=== PATIENT | male | born 1935 | race Caucasian/White ===

== ENCOUNTER 2016-07-20 12:40 | Day surgery (SDC) | payer MEDICARE ==
[~2016-07-20] VITALS: Ht 181.6 cm; Wt 97.0 kg
[~2016-07-20 12:40] MED LIST: ASPI-973 PO; FUR20 PO; Sodium Chloride LOK Flush 10 mL Syringe IV PRN; fentaNYL-PF 50 mCg/mL 2 mL Inj IVPUSH PRN
[2016-07-20 13:17] VITALS: BP 132/75; PULSE 82; RESP 15; O2SAT 96
[2016-07-20] MEDS: 0.9% Sodium Chloride 1,000 ML IV PRN ×2 (13:59→14:12)
[2016-07-20 14:28] VITALS: BP 141/76; PULSE 77; RESP 16; O2SAT 94
[2016-07-20 14:38] VITALS: BP 118/70; PULSE 87; RESP 16; O2SAT 96
[2016-07-20 14:48] VITALS: BP 121/64; PULSE 81; RESP 16; O2SAT 94
--- NOTE | 2016-07-20 23:00 | ENDO ---
[address] [address] ENDOSCOPY PROCEDURE PATIENT: NITA HARRY : 1935 MR#: [id number] ADMIT: 07/20/2016 JOB ID: [id number] DATE OF PROCEDURE: 07/20/2016 PRIMARY PROVIDER: Jeanie Tripp MD. PROCEDURE: Colonoscopy with hot snare polypectomies. INDICATIONS: A 81-year-old male with a personal history of colon polyps returning for surveillance. EQUIPMENT: [employer]. SEDATION: 1. Versed 5 mg. 2. Fentanyl 100 mcg. COMPLICATIONS: None identified. BOWEL PREPARATION: Fair, adequate exam. PROCEDURE INFORMATION: After the risks and benefits were explained, written and verbal informed consent was obtained. The patient was brought to the endoscopy suite and placed into the left lateral decubitus position. Sedation was achieved using the above-stated medications with the addition of oxygen via nasal cannula. A digital rectal examination was accomplished and revealed the presence of both internal and external, nonbleeding, nonthrombosed hemorrhoids. No other pathology. The scope was introduced into the rectum and advanced under direct visualization to the level of the cecum, as identified by the appendiceal orifice and ileocecal valve. The scope was slowly withdrawn to carefully examine the mucosa for any defects or lesions. Retroflexed views were accomplished in the rectum. The colon was decompressed. The scope was removed from the patient who tolerated the procedure well. FINDINGS: The patient had moderate diverticulosis throughout the left colon. In the mid colon there were three polyps seen and removed by way of hot snare. The smallest was perhaps 4-5 mm and the largest perhaps 6-7 mm. All of these were sessile. Hot snare was utilized. Retroflexed views disclosed moderate internal hemorrhoids. ENDOSCOPIC DIAGNOSES: 1. Diverticulosis. 2. Moderately engorged hemorrhoids. 3. Colon polyps x3. RECOMMENDATIONS: 1. Await histopathology. 2. If all of these are returned adenomatous, repeat colonoscopy in three years. If less than three are adenomatous, then consider all being well repeat colonoscopy in five years.
--- NOTE | 2016-07-22 12:08 | PATH ---
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 ICD10 CODE D12.6 GROSS DESCRIPTION: The specimen is received in one formalin filled container labeled with the patient's name, sublabeled "colon polyps" and consists of multiple portions of tissue which aggregate to 0.6-0.6 x 0.4 CM. The specimen is entirely submitted in one cassette. 07/21/2016 [facility] MICRO DESCRIPTION: See diagnosis. ICD-9 CODES: CPT CODES: 1: 24425 Electronically Signed Out Norah Morgan MD [facility] [address], [place] [address] Technical component performed at [facility], [address] [place] [address] Ave[address], [place], [address]
== END 2016-07-20 23:59 | disposition home or self-care (01) ==
LOC: END 12:40
PROVIDERS: ATTEND Internal Medicine Gastroenterology
DX: Z12.11 Encounter for screening for malignant neoplasm of colon (principal); D12.3 Benign neoplasm of transverse colon; K57.30 Diverticulosis of large intestine without perforation or abscess without bleeding; K64.8 Other hemorrhoids; Z86.010 Personal history of colon polyps; E78.1 Pure hyperglyceridemia; M51.37 Other intervertebral disc degeneration, lumbosacral region; M48.06 Spinal stenosis, lumbar region; R73.01 Impaired fasting glucose; Z79.82 Long term (current) use of aspirin
CPT/HCPCS: 45385; J2250; J7030

== ENCOUNTER 2017-04-02 05:03 | Emergency (ER) | payer MEDICARE ==
[~2017-04-02] VITALS: Ht 180.3 cm; Wt 99.1 kg
[~2017-04-02 05:03] MED LIST changes: -Sodium Chloride LOK Flush 10 mL Syringe IV PRN; -fentaNYL-PF 50 mCg/mL 2 mL Inj IVPUSH PRN
[2017-04-02 05:09] VITALS: BP 187/73; PULSE 68; RESP 20; O2SAT 97
[2017-04-02 05:47] LABS: BASOPHILS % (AUTO) 0.2 % (0-3); EOSINOPHILS % (AUTO) 1.5 % (0-5); MONOCYTES % (AUTO) 10.1 % (4-12); Mean Corpuscular Hemoglobin 29.8 pg (27.0-35.0); Mean Corpuscular Volume 85.7 fL (81-100); NEUTROPHILS % (AUTO) 66.9 % (40-74); Platelet Count 223 bil/L (150-400)
[2017-04-02 06:10] LABS: APPEARANCE,URINE CLEAR (CLEAR,HAZY); COLOR,URINE YELLOW (YELLOW); OCCULT BLOOD,URINE TRACE (NEGATIVE); PH,URINE 6.5 (5.0-8.0)
--- NOTE | 2017-04-02 06:21 | ED.REPORT ---
HPI-Back Pain 40 and Over Date of Service Apr 02, 2017 ED Provider: Florin Yuan MD An 82 year old male with a history of diverticulitis, appendectomy and back surgery presents to the ED complaining of right flank pain. This pain began two days ago and is accompanied by nausea and vomiting. He denies fever, cough, shortness of breath, chest pain, diarrhea or constipation. The pt suspects that these symptoms are due to a kidney stone, though he has no history of this. Nursing Notes Stated Complaint: BACK PAIN, POSSIBLE KIDNEY STONE Chief Complaint: Male Abdominal Pain Nursing Notes Reviewed: Yes Allergies: Coded Allergies: acetaminophen (Verified Allergy, Intermediate, HIVES WITH LARGE AMOUNTS , 04/02/17) Scheduled Aspirin (Aspirin) 81 Mg Tablet 81 MG PO DAILY Furosemide (Furosemide) 20 Mg Tab 20 MG PO DAILY Tamsulosin (Flomax) 0.4 Mg Capsule 0.4 MG PO DAILY Scheduled PRN Hydrocodone-Acetaminophen 5-325 mg (Hydrocodone-Acetaminophen 5-325 mg) 1 Each Tablet 1 TABLET PO Q4H PRN PRN For Pain Ibuprofen (Ibuprofen) 800 Mg Tablet 800 MG PO TID PRN PRN For Pain General Time Seen by MD: 06:10 Chief Complaint Flank pain right Hx Obtained From: Patient Arrived By: Walk-in Sudden in Onset?: No Onset Occurred: 2 days ago Symptom Duration: Since onset Recent Healthcare: No recent hospitalization, Recent doctor visit Similar Sx Previous: No Past Medical History Past Medical History diverticulitis arthritis lower extremity neuropathy Past Surgical History Back surgery Reports: Appendectomy Smoking History Former Smoker Social History Other Social History: Good social support, Ambulatory Status Independent Review of Systems Constitutional: Denies: Fever Respiratory: Denies: Non-productive cough, Shortness of breath Cardiovascular: Denies: Chest pain GI: Reports: Nausea, Vomiting, Denies: Constipation, Diarrhea Male: Reports Flank pain Musculoskeletal: Denies: Neck pain Complete sys rev & neg: except as marked. Physical Exam Initial Vital Signs Vital Signs (First) Date Time Temp Pulse Resp B/P Pulse Ox O2 Delivery O2 Flow Rate FiO2 04/02/17 05:09 36 68 20 187/73 97 Room Air Initial VS: Reviewed General/Constitutional: Awake, Alert Respiratory / Chest: Atraumatic, Breath sounds NL, Breath sounds = bilat, No respiratory distress Cardiovascular: Heart rate NL, Regular rhythm, Heart sounds NL Abdomen: Atraumatic, Soft, Non-tender Back: Atraumatic, Full range of motion, No CVA tenderness Neurologic: Oriented X3, Speech NL, No motor deficits, No sensory deficits Neck: Atraumatic, Supple, Full range of motion Lower Extremity / Pelvis / MS: Atraumatic, Full range of motion Skin: Atraumatic, Color NL, No rash, Warm, Dry Head / Eyes: Atraumatic, Normocephalic, PERRL, EOMI ENT: Atraumatic, Airway patent, Mucous membranes moist Upper Extremity / MS: Atraumatic, Full range of motion Psychiatric: Affect NL, Mood NL Interpretation & Diagnostics Lab Results Interpretation Result Diagram: 04/02/17 0540 04/02/17 0540 Test 04/02/17 05:30 04/02/17 05:40 Urine Color Yellow (YELLOW) Urine Appearance Clear (CLEAR,HAZY) Urine pH 6.5 (5.0-8.0) Urine Specific [place]anna 1.015 (1.003-1.035) Urine Protein Negativemg/dL (NEG,TRACE) Urine Glucose (UA) 100mg/dL (NEGATIVE) Urine Ketones Negativemg/dL (NEGATIVE) Urine Occult Blood Trace (NEGATIVE) Urine Nitrite Negative (NEGATIVE) Urine Bilirubin Negative (NEGATIVE) Urine Urobilinogen 1.0mg/dL (NORMAL) Urine Leukocyte Esterase Negative (NEGATIVE) Urine RBC 0-2/hpf (0-2) Urine WBC 0-5/hpf (0-5) Urine Epithelial Cells Occasional/hpf (NONE-MOD) Urine Crystals Oxalic acid crystals (NONE Urine Bacteria Few/hpf (NONE-FEW) Urine Hyaline Casts None/lpf (NONE) Urine Granular Casts None seen (NONE SEEN) Urine Waxy Casts None seen (NONE SEEN) Urine Red Blood Cell Casts None seen (NONE SEEN) Urine White Blood Cell Casts None seen (NONE SEEN) Urine Mucus Present (None Seen) Urine Trichomonas None seen (NONE SEEN) Urine Yeast None (NONE SEEN) Urinalysis Comment None Urine Culture Reflexed Not indicated Hold Urine Received (Received) White Blood Count 11.6th/mm3 (3.8-10.1) Red Blood Count 5.33mil/mm3 (4.40-5.80) Hemoglobin 15.9g/dL (13.8-17.2) Hematocrit 45.7% (41.0-50.0) Mean Corpuscular Volume 85.7fL (81-100) Mean Corpuscular Hemoglobin 29.8pg (27.0-35.0) Mean Corpuscular Hemoglobin Concent 34.8% (32.0-37.0) Red Cell Distribution Width 12.6% (12.3-15.4) Platelet Count 223bil/L (150-400) Neutrophils (%) (Auto) 66.9% (40-74) Lymphocytes (%) (Auto) 21.0% (14-46) Monocytes (%) (Auto) 10.1% (4-12) Eosinophils (%) (Auto) 1.5% (0-5) Basophils (%) (Auto) 0.2% (0-3) Hold Purple Top Tube Received (Received) Hold Blue Top Tube Received (Received) Sodium Level 142mEq/L (134-144) Potassium Level 4.2mEq/L (3.5-5.2) Chloride Level 107mEq/L (97-108) Carbon Dioxide Level 19mmol/L (18-29) Blood Urea Nitrogen 24mg/dL (8-27) Creatinine 1.55mg/dL (0.76-1.27) Estimat Glomerular Filtration Rate 46mL/min (>59) Glucose Level 127mg/dL (60-99) Calcium Level 8.5mg/dL (8.5-10.1) Total Bilirubin 0.3mg/dL (0.0-1.2) Aspartate Amino Transf (AST/SGOT) 24U/L (0-50) Alanine Aminotransferase (ALT/SGPT) 20U/L (0-44) Alkaline Phosphatase 84U/L (25-160) Total Protein 7.1g/dL (6.4-8.4) Albumin 3.8g/dL (3.4-5.0) Lipase 43U/L (13-60) Hold Pablo Top Tube Received (Received) Hold Vicente Top Tube Received (Received) CT Abd / Pelvis Interpretation CONCLUSION: Right nephrolithiasis with mild right hydronephrosis secondary to a 3 mm calculus at the right ureterovesical junction. Diverticulosis without CT evidence of divertculitis. Enlarged prostate gland. Interpretation / Wet Read by: Interpret - Radiologist Re-Eval/Medical Decision Med Decision/Clinical Course 82-year-old male presenting with right flank pain. CT confirms 3 mm nonobstructing stone in the right ureter. Urine not suggestive of infection. No sign symptoms of infection or sepsis. Pain was controlled. Patient will be discharged with Flomax and pain control. He will follow up with urology. Return precautions given. Source of Hx: Old records Re-Evaluation/Progress : Time of Eval: 07:50 Patient Status: Condition improved Re-Evaluation/Progress Note: Pt rechecked, who is comfortable. Radiology results, diagnosis and plan for discharge are discussed. The pt understands and agrees with the plan. All questions are addressed at this time. Counseled Regarding: Diagnosis, Lab results, Need for follow-up, When/why to return to ED Discharge & Departure Impression: Primary Impression: Kidney stone Disposition: Home Discharge Condition All VS Reviewed: Yes Condition: Stable Patient Instructions: Kidney Stones (ED) Additional Instructions: Thank you for entrusting us with your care. Your evaluation was reassuring. Take the Flomax as prescribed. Take ibuprofen as directed for moderate pain. Take one [place] every 6 hours as needed for severe pain. Do not drink, drive or consume acetaminophen while taking the [place]. Call your primary care physician to arrange a follow up appointment in the next several days. Also arrange a follow up appointment with urology. Return to the emergency department if you develop any new or worsening symptoms such as worsening pain, fever, chills, nausea or vomiting. Referrals: Cassidy Melchor DO (PCP) Seferino Soler MD Scribe Attestation Portions of this note were transcribed by Cristin Tsai. I, Dr. Yuan personally performed the history, physical exam and medical decision-making; I reviewed and confirmed the accuracy of the information in the transcribed note. copies to: Cassidy Melchor Ben M MD Apr 02, 2017 06:21 CRISTIN TSAI Apr 02, 2017 06:36
[2017-04-02] MEDS ORDERED: Ondansetron 2 mg/mL 2 mL Inj IVPUSH PRN (06:55)
[2017-04-02] MEDS ORDERED: TAMS0.4C98 PO (07:49)
[2017-04-02] MEDS ORDERED: IBUP800T28 PO (07:49)
[2017-04-02] MEDS ORDERED: HYDR-4003 PO (07:58)
[2017-04-02 08:06] VITALS: BP 161/82; PULSE 70; RESP 12; O2SAT 95
[2017-04-02 08:14] VITALS: BP 161/82; PULSE 70; RESP 12; O2SAT 95
--- NOTE | 2017-04-02 09:36 | DRSVH ---
PROCEDURE: CT KUB ([id number]) INDICATIONS: R flank pain TECHNIQUE: Noncontrast 5 mm thick sections acquired from the diaphragms to the symphysis. 5 mm thick coronal an d sagittal reformats were then performed. For radiation dose reduction, the following was used: aut omated exposure control, adjustment of mA and/or kV according to patient size. COMPARISON: None. FINDINGS: Image quality: Excellent. Lung bases: There is 4 mm nodule in the right major fissure. Heart size is normal. Urinary system: There is a 4 mm stone at the right UVJ. There is mild right hydronephrosis and hydro ureter. A 2 minute calculus is noted in the right kidney. Mild left pelviectasis. No left renal stone or ureteral stone. Both kidneys are normal in size. Mild bilateral perinephric stranding. A 4.8 x 4 .0 cm cyst is seen in the left kidney. Both ureters appear non-dilated throughout their expected cour ses. Bladder wall thickness is normal. Prostate is enlarged. Other solid organs: Liver and spleen are normal in size. Gallbladder is normal. Pancreas is normal in contours. No adrenal nodules. Peritoneum and bowel: Unenhanced bowel loops demonstrate normal wall thickness and caliber. Scatter ed colonic diverticula present. No acute diverticulitis. No free fluid or air. Nodes and vessels: No retroperitoneal or mesenteric adenopathy by size criteria. Aorta and inferior vena cava are normal in caliber. Abdominal wall: No ventral hernias. Pelvis: No free pelvic fluid. No inguinal hernias or adenopathy. Bones: No suspicious bony lesions. No vertebral body compression fractures. IMPRESSION: 1. A 4 mm stone at the right UVJ. There is mild right hydronephrosis and hydroureter. 2. A 2 mm nonobstructive right renal stone. 3. Mild left hydronephrosis. The right ureter is normal in caliber. No left renal stones or ureter st one. The CT finding suggests the possibility of left ureteropelvic junction obstruction. 4. A 4.8 x 4.0 cm simple appearing left renal cyst. 5. A 4 mm nodule in the right major fissure. Please see followup recommendations. 6. Diverticulosis without diverticulitis. 7. Enlarged prostate. Fleischner Society criteria for SOLID lung nodule followup. Nodule size (mm)Low-risk patientHigh-risk [id number] follow-up neededFollow-up at 12 mo; if no leonardo e, no further follow-up>6-6Mvpbjr-mm CT at 12 mo; if no change, no further follow-up needed.Initial f ollow-up CT at 6-12 mo, then 18-24 mo if no change. >6-8Initial follow-up CT at 6-12 mo, then 18-24 mo if no change. Initial follow-up CT at 3-6 mo, then 9-12 mo and 24 mo if no change. >8Follow-up CT at 3, 9, 24 mo. Or PET and/or biopsy.Same as for low-risk pts. No significant discrepancy with the table games shift manager radiology preliminary report. Dictated by: Fernando Alvarez M.D. on 04/02/2017 at 9:27 Approved by: Fernando Alvarez M.D. on 04/02/2017 at 9:34
== END 2017-04-02 08:14 | disposition home or self-care (01) ==
LOC: SED 05:03
DX: N20.0 Calculus of kidney (principal); Z87.891 Personal history of nicotine dependence; Z79.82 Long term (current) use of aspirin; Z88.8 Allergy status to other drugs, medicaments and biological substances
CPT/HCPCS: 36415; 74176; 80053; 81000; 83690; 85025; 96374; 99285; J1885